=== PATIENT | male | born 1975 | race Caucasian/White ===

== ENCOUNTER → 2023-01-15 | Outpatient (CLI) | payer BC, SELFPAY ==
[2023-01-15 17:50] LABS: Absolute Lymphocyte Count 2.72 X10^3/uL (0.83-4.51); Absolute Neutrophil Count 5.7 X10^3/uL (2.0-7.7); Basophil# 0.07 X10^3/uL; Basophil% 0.7 % (0-1); Eosinophil# 0.32 X10^3/uL; Eosinophils% 3.4 % (0-5); Hematocrit 48.7 % (40-54); Lymphocyte # 2.72 X10^3/ul (0.83-4.51); Lymphocyte % 28.8 % (19-41); Mean Corp Hgb Conc 32.9 g/dL (32-36); Mean Corpuscular Hgb 27.7 pg (27.0-32.0); Mean Corpuscular Volume 84.4 fL (80-94); Monocyte# 0.68 X10^3/uL; Monocyte% 7.2 % (0-10); NRBC Flagged by Analyzer 0 % (0-5); Neutrophil # 5.65 X10^3/uL (2.7-7.7); Neutrophil % 59.7 % (47-70); Platelet Count 213 K/mm3 (150-450); RBC Distribution Width CV 12.5 % (11.6-14.6); Red Blood Count 5.77 M/mm3 (4.6-6.2); White Blood Count 9.5 K/mm3 (4.4-11.0)
[2023-01-15 18:22] LABS: AST(SGOT) 30 U/L (15-37); Alanine Aminotransfer ALT/SGPT 69 U/L (16-61); Albumin, Serum 4.2 g/dL (3.2-5.0); Alkaline Phosphatase 89 U/L (45-117); Anion Gap 7 (5-15); BUN 14 mg/dL (7-18); Calcium,Total 9.3 mg/dL (8.5-10.1); Chloride 108 mmol/L (98-107); Cholesterol 212 mg/dL (200); Creatinine, Serum 1.08 mg/dL (0.70-1.30); EST Glomerular Filtration Rate 77 mL/min (>60); Est Glom Filt Rate - Afr Amer 93 mL/min (>60); Glucose 78 mg/dL (74-106); High Density Lipoprotein 38 mg/dL; Potassium 3.9 mmol/L (3.5-5.1); Protein, Total 8.2 g/dL (6.4-8.2); Sodium Level 139 mmol/L (136-145); Thyroid Stim Hormone (TSH) 1.03 uIU/mL (0.358-3.74); Triglycerides 129 mg/dL; Very Low Density Lipoprotein 26 mg/dL (5-40)
== END | disposition home or self-care (01) ==
LOC: MFPLAB 14:37
PROVIDERS: PCP Family Medicine; Visit Provider Family Medicine
DX: I10 Essential (primary) hypertension (principal); Z13.220 Encounter for screening for lipoid disorders
CPT/HCPCS: 36415; 80053; 80061; 84443; 85025

== ENCOUNTER → 2023-08-06 | Outpatient (CLI) | payer BC, SELFPAY ==
[2023-08-06 18:10] LABS: PSA,Total - Annual Screen 0.42 ng/mL (0.00-4.00)
== END | disposition home or self-care (01) ==
LOC: MFPLAB 14:37
PROVIDERS: PCP Family Medicine; Visit Provider Family Medicine
DX: Z00.00 Encounter for general adult medical examination without abnormal findings (principal); Z80.42 Family history of malignant neoplasm of prostate
CPT/HCPCS: 36415; 84153; G0103

== ENCOUNTER → 2025-02-20 | Outpatient (CLI) | payer BC, SELFPAY ==
[2025-02-20 17:57] LABS: Hematocrit 46.4 % (40-54); Hemoglobin 16.0 g/dL (13.0-16.5); Mean Corp Hgb Conc 34.5 g/dL (32-36); Mean Corpuscular Volume 81.0 fL (80-94); Mean Platelet Vol. 9.6 fl (6.2-12.0); Platelet Count 227 K/mm3 (150-450); RBC Distribution Width CV 12.2 % (11.6-14.6); RBC Distribution Width SD 35.3 fl (35.1-43.9); Red Blood Count 5.73 M/mm3 (4.6-6.2); White Blood Count 9.7 K/mm3 (4.4-11.0)
[2025-02-20 18:29] LABS: AST(SGOT) 37 U/L (<=37); Alanine Aminotransfer ALT/SGPT 64 U/L (<=46); Albumin, Serum 4.7 g/dL (3.5-5.0); Alkaline Phosphatase 92 U/L (40-129); Anion Gap 13 (5-15); BUN 17 mg/dL (4-19); BUN/Creat Ratio 14.9 RATIO (10-20); Calcium,Total 10.3 mg/dL (7.6-11.0); Carbon Dioxide 24.7 mmol/L (21.0-32.0); Chloride 103 mmol/L (98-108); Cholesterol 234 mg/dL (<=200); Globulin 3.3 g/dL (2.2-4.2); Glucose 102 mg/dL (70-99); Low Density Lipoprotein Calc. 113 mg/dL; PSA,Total - Annual Screen 0.42 ng/mL (0.02-4.00); Potassium 3.7 mmol/L (3.3-5.1); Triglycerides 506 mg/dL; Very Low Density Lipoprotein 101 mg/dL (5-40); cholesterol:hdl ratio screen 7.29
== END | disposition home or self-care (01) ==
LOC: MFPLAB 15:24
PROVIDERS: PCP Family Medicine; Visit Provider Family Medicine
DX: I10 Essential (primary) hypertension (principal); Z13.220 Encounter for screening for lipoid disorders; Z12.5 Encounter for screening for malignant neoplasm of prostate
CPT/HCPCS: 36415; 80053; 80061; 84153; 85027; G0103

== ENCOUNTER 2025-04-03 07:04 | Day surgery (SDC) | payer BC, SELFPAY ==
[2025-04-03] VITALS (9 sets, daily range): BP systolic 114–132; BP diastolic 69–96; PULSE 69–78; RESP 16; TEMP 36.2–37.2; O2SAT 94–97; BMI 32.2
--- OUTSIDE RECORDS SUMMARY | 2025-04-03 07:09 | XMS RPT_ITS | CCD ---
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 Role Phone Nicolette Starks Primary Care Unavailable Nicolette Starks Attending Unavailable Nicolette Starks Primary Care Unavailable Brad Choudhary Attending Unavailable Problems Problem Classification Problem Date Documented Da te Episodic/Chronic Essential hypertension (1 source) Essential (primary) hypertension; Translations: [Essential (primary) hypertension] Onset: 03-03-2025 Chronic Results Test Name Value Interpretation Reference Range Facility CBC-Complete Blood Cnt No Di ffon 02-20-2025 Erythrocyte distribution width (RBC) [Ratio] 12.2 % Normal 11.6-14.6 [facility] Comment on above: Order Comment: Order Date: 02/20/25 Order Info: [id number] - CBC Performed By: #### L 100.0500, L500.4100, L500.4050, L501.9910 #### [facility] [address] [place], [address] Hematocrit (Bld) [Volume fraction] 46.4 % Normal 40-54 [facility] Comment on above: Order Comment: Order Date: 02/20/25 Order Info: [id number] - CBC Performed By: #### L 100.0500, L500.4100, L500.4050, L501.9910 #### [facility] [address] [place], [address] Hemoglobin (Bld) [Mass/Vol] 16.0 g/dL Normal 13.0-16.5 [facility] Comment on above: Order Comment: Order Date: 02/20/25 Order Info: [id number] - CBC Performed By: #### L 100.0500, L500.4100, L500.4050, L501.9910 #### [facility] [address] [place], [address] MCH (RBC) [Entitic mass] 27.9 pg Normal 27.0-32.0 [facility] Comment on above: Order Comment: Order Date: 02/20/25 Order Info: [id number] - CBC Performed By: #### L 100.0500, L500.4100, L500.4050, L501.9910 #### [facility] [address] [place], [address] MCHC (RBC) [Mass/Vol] 34.5 g/dL Normal 32-36 [facility] Comment on above: Order Comment: Order Date: 02/20/25 Order Info: [id number] - CBC Performed By: #### L 100.0500, L500.4100, L500.4050, L501.9910 #### [facility] [address] [place], [address] MCV (RBC) [Entitic vol] 81.0 fL Normal 80-94 [facility] Comment on above: Order Comment: Order Date: 02/20/25 Order Info: [id number] - CBC Performed By: #### L 100.0500, L500.4100, L500.4050, L501.9910 #### [facility] [address] [place], [address] Platelet mean volume (Bld) [Entitic vol] 9.6 fL Normal 6.2-12.0 [facility] Comment on above: Order Comment: Order Date: 02/20/25 Order Info: [id number] - CBC Performed By: #### L 100.0500, L500.4100, L500.4050, L501.9910 #### [facility] [address] [place], [address] Platelets (Bld) [#/Vol] 227 10*3/uL Normal 150-450 [facility] Comment on above: Order Comment: Order Date: 02/20/25 Order Info: [id number] - CBC Performed By: #### L 100.0500, L500.4100, L500.4050, L501.9910 #### [facility] [address] [place], [address] RBC (Bld) [#/Vol] 5.73 10*6/uL Normal 4.6-6.2 [facility] Comment on above: Order Comment: Order Date: 02/20/25 Order Info: [id number] - CBC Performed By: #### L 100.0500, L500.4100, L500.4050, L501.9910 #### [facility] [address] [place], [address] RDW SD 35.3 fl Normal 35.1-43.9 [facility] Comment on above: Order Comment: Order Date: 02/20/25 Order Info: [id number] - CBC Performed By: #### L 100.0500, L500.4100, L500.4050, L501.9910 #### [facility] [address] [place], [address] WBC (Bld) [#/Vol] 9.7 10*3/uL Normal 4.4-11.0 [facility] Comment on above: Order Comment: Order Date: 02/20/25 Order Info: [id number] - CBC Performed By: #### L 100.0500, L500.4100, L500.4050, L501.9910 #### [facility] [address] [place], [address] Comprehensive Metabolic Prof ilon 02-20-2025 Albumin [Mass/Vol] 4.7 g/dL Normal 3.5-5.0 [facility] Comment on above: Order Comment: Order Date: 02/20/25 Order Info: [id number] - CMP Order Info: [id number] - LIPID Order Info: [id number] - PSA Performed By: #### L 100.0500, L500.4100, L500.4050, L501.9910 #### [facility] [address] [place], [address] Albumin/Globulin [Mass ratio] 1.4 {ratio} Normal 0.9-2.4 [facility] Comment on above: Order Comment: Order Date: 02/20/25 Order Info: 785- - CMP Order Info: - LIPID Order Info: [id number] - PSA Performed By: #### L 100.0500, L500.4100, L500.4050, L501.9910 #### [facility] [address], [address] ALK PHOS 92 U/L Normal 40-129 [facility] Comment on above: Order Comment: Order Date: 02/20/25 Order Info: 07 - CMP Order Info: [id number] - LIPID Order Info: [id number] - PSA Performed By: #### L 100.0500, L500.4100, L500.4050, L501.9910 #### [facility] [address] [place], [address] ALT [Catalytic activity/Vol] 64 U/L High <=46 [facility] Comment on above: Order Comment: Order Date: 02/20/25 Order Info: [id number] - CMP Order Info: [id number] - LIPID Order Info: [id number] - PSA Performed By: #### L 100.0500, L500.4100, L500.4050, L501.9910 #### [facility] [address] [place], [address] AST [Catalytic activity/Vol] 37 U/L Normal <=37 [facility] Comment on above: Order Comment: Order Date: 02/20/25 Order Info: 0786 - CMP Order Info: [id number] - LIPID Order Info: [id number] - PSA Performed By: #### L 100.0500, L500.4100, L500.4050, L501.9910 #### [facility] [address] [place], [address] Bilirubin [Mass/Vol] 0.27 mg/dL Normal 0.00-1.30 [facility] Comment on above: Order Comment: Order Date: 02/20/25 Order Info: 785- - CMP Order Info: - LIPID Order Info: [id number] - PSA Performed By: #### L 100.0500, L500.4100, L500.4050, L501.9910 #### [facility] [address] [place], [address] BUN/CRE 14.9 RATIO Normal 10-20 [facility] Comment on above: Order Comment: Order Date: 02/20/25 Order Info: [id number] - CMP Order Info: - LIPID Order Info: [id number] - PSA Performed By: #### L 100.0500, L500.4100, L500.4050, L501.9910 #### [facility] [address] [place], [address] Calcium [Mass/Vol] 10.3 mg/dL Normal 7.6-11.0 [facility] Comment on above: Order Comment: Order Date: 02/20/25 Order Info: [id number] - CMP Order Info: - LIPID Order Info: [id number] - PSA Performed By: #### L 100.0500, L500.4100, L500.4050, L501.9910 #### [facility] [address] [place], [address] Chloride [Moles/Vol] 103 mmol/L Normal 98-108 [facility] Comment on above: Order Comment: Order Date: 02/20/25 Order Info: [id number] - CMP Order Info: - LIPID Order Info: [id number] - PSA Performed By: #### L 100.0500, L500.4100, L500.4050, L501.9910 #### [facility] [address] [place], [address] CO2 [Moles/Vol] 24.7 mmol/L Normal 21.0-32.0 [facility] Comment on above: Order Comment: Order Date: 02/20/25 Order Info: 07- - CMP Order Info: [id number] - LIPID Order Info: [id number] - PSA Performed By: #### L 100.0500, L500.4100, L500.4050, L501.9910 #### [facility] [address] [place], [address] Creatinine [Mass/Vol] 1.13 mg/dL Normal 0.70-1.20 [facility] Comment on above: Order Comment: Order Date: 02/20/25 Order Info: [id number] - CMP Order Info: [id number] - LIPID Order Info: [id number] - PSA Performed By: #### L 100.0500, L500.4100, L500.4050, L501.9910 #### [facility] [address] [place], [address] GAP 13 Normal 5-15 [facility] Comment on above: Order Comment: Order Date: 02/20/25 Order Info: 0786 - CMP Order Info: [id number] - LIPID Order Info: [id number] - PSA Performed By: #### L 100.0500, L500.4100, L500.4050, L501.9910 #### [facility] [address] [place], [address] GFR/1.73 sq M.predicted among non-blacks MDRD (S/P/Bld) [Vol rate/Area] 79 mL/min/{1.73_m2} Normal >60 [facility] Comment on above: Order Comment: Order Date: 02/20/25 Order Info: 07- - CMP Order Info: [id number] - LIPID Order Info: [id number] - PSA Result Comment: mL/m in/1.73m2 CKD-EPI Creatinine Equation (2020) Performed By: #### L 100.0500, L500.4100, L500.4050, L501.9910 #### [facility] [address] [place], [address] Globulin (S) [Mass/Vol] 3.3 g/dL Normal 2.2-4.2 [facility] Comment on above: Order Comment: Order Date: 02/20/25 Order Info: [id number] - CMP Order Info: [id number] - LIPID Order Info: [id number] - PSA Performed By: #### L 100.0500, L500.4100, L500.4050, L501.9910 #### [facility] [address] [place], [address] Glucose [Mass/Vol] 102 mg/dL High 70-99 [facility] Comment on above: Order Comment: Order Date: 02/20/25 Order Info: [id number] - CMP Order Info: [id number] - LIPID Order Info: [id number] - PSA Performed By: #### L 100.0500, L500.4100, L500.4050, L501.9910 #### [facility] [address] [place], [address] Potassium [Moles/Vol] 3.7 mmol/L Normal 3.3-5.1 [facility] Comment on above: Order Comment: Order Date: 02/20/25 Order Info: [id number] - CMP Order Info: [id number] - LIPID Order Info: 2857 - PSA Performed By: #### L 100.0500, L500.4100, L500.4050, L501.9910 #### [facility] [address] [place], [address] Sodium [Moles/Vol] 141 mmol/L Normal 133-145 [facility] Comment on above: Order Comment: Order Date: 02/20/25 Order Info: 07 - CMP Order Info: [id number] - LIPID Order Info: [id number] - PSA Performed By: #### L 100.0500, L500.4100, L500.4050, L501.9910 #### [facility] [address] [place], [address] T PROT 8.0 g/dL Normal 5.9-8.4 [facility] Comment on above: Order Comment: Order Date: 02/20/25 Order Info: 07 - CMP Order Info: - LIPID Order Info: [id number] - PSA Performed By: #### L 100.0500, L500.4100, L500.4050, L501.9910 #### [facility] [address] [place], [address] Urea nitrogen [Mass/Vol] 17 mg/dL Normal 4-19 [facility] Comment on above: Order Comment: Order Date: 02/20/25 Order Info: 07 - CMP Order Info: - LIPID Order Info: [id number] - PSA Performed By: #### L 100.0500, L500.4100, L500.4050, L501.9910 #### [facility] [address] [place], [address] Lipid Profileon 02-20-2025 CHOL:HDL 7.29 Normal [facility] Comment on above: Order Comment: Order Date: 02/20/25 Order Info: 0786 - CMP Order Info: [id number] - LIPID Order Info: [id number] - PSA Performed By: #### L 100.0500, L500.4100, L500.4050, L501.9910 #### [facility] [address] [place], [address] Cholesterol [Mass/Vol] 234 mg/dL High <=200 [facility] Comment on above: Order Comment: Order Date: 02/20/25 Order Info: 0786 - CMP Order Info: [id number] - LIPID Order Info: [id number] - PSA Result Comment: Chol esterol level, Desirable <200 mg/dL Borderline high cholesterol 200-239 mg/dL High cholesterol >=240 mg/dL Recommendations of the NCEP Adult Treatment Panel for the following risk-cutoff thresholds for the [place] population. Performed By: #### L 100.0500, L500.4100, L500.4050, L501.9910 #### [facility] [address] [place], [address] Cholesterol in HDL [Mass/Vol] 32 mg/dL Low [facility] Comment on above: Order Comment: Order Date: 02/20/25 Order Info: 0786- - CMP Order Info: [id number] - LIPID Order Info: [id number] - PSA Result Comment: Anastasiya onal Cholesterol Education Program (NCEP) guidelines: <40 mg/dL: Low HDL-cholesterol (major risk factor for CHD) >= 60 mg/dL: High HDL-cholesterol (negative risk factor for CHD) HDL-cholesterol is affected by a number of factors, e.g. smoking, exercise, hormones, sex and age. Performed By: #### L 100.0500, L500.4100, L500.4050, L501.9910 #### [facility] [address] [place], [address] Cholesterol in LDL [Mass/Vol] 113 mg/dL Normal [facility] Comment on above: Order Comment: Order Date: 02/20/25 Order Info: 0786-1 - CMP Order Info: [id number] - LIPID Order Info: [id number] - PSA Result Comment: Bord qqebbp=448-961 mg/dL Higher Ctas=476 mg/dL or greater Keller Equation 2020 for LDL-C Performed By: #### L 100.0500, L500.4100, L500.4050, L501.9910 #### [facility] [address] [place], [address] Cholesterol in VLDL [Mass/Vol] 101 mg/dL High 5-40 [facility] Comment on above: Order Comment: Order Date: 02/20/25 Order Info: [id number] - CMP Order Info: [id number] - LIPID Order Info: [id number] - PSA Performed By: #### L 100.0500, L500.4100, L500.4050, L501.9910 #### [facility] [address] [place], [address] Triglyceride [Mass/Vol] 506 mg/dL High [facility] Comment on above: Order Comment: Order Date: 02/20/25 Order Info: [id number] - CMP Order Info: [id number] - LIPID Order Info: [id number] - PSA Result Comment: The drugs N-Acetylcysteine and Metamizole may falsely depress this assay. Normal range: <150 mg/dL Borderline High: 150-199 mg/dL High: 200-499 mg/dL Very High: >500 mg/dL Performed By: #### L 100.0500, L500.4100, L500.4050, L501.9910 #### [facility] [address] [place], [address] PSA,Total - Annual Screenon 02-20-2025 PSA,TOT SCREEN 0.42 ng/mL Normal 0.02-4.00 [facility] Comment on above: Order Comment: Order Date: 02/20/25 Order Info: [id number] - CMP Order Info: [id number] - LIPID Order Info: [id number] - PSA Result Comment: This test was performed using the [employer] tPSA method. Measured values of a patient??sample can vary depending on the testing procedure used. PSA values determined on patient samples by different testing procedures cannot be used interchangeably. If there is a change in PSA assays while monitoring therapy, sequential testing should be performed to confirm baseline values. Performed By: #### L 100.0500, L500.4100, L500.4050, L501.9910 #### [facility] [address] [place], [address] No Panel InformationOrdered By: Nicolette Starks on 08-06-2023 Prostate Specific Antigen Screen 0.42 ng/mL 0.00-4.00 [facility] Comment on above: This test was perfor med using the TPSA assay method [facility]. Values obtained with differentassay methods cannot be used interchangably.When changing PSA assays in the course of monitoring apatient, additional sequential testing should be carriedout to confirm baseline values. Absolute lymphocyte countOrd ered By: Nicolette Starks on 01-15-2023 Lymphocytes Auto (Unsp spec) [#/Vol] 2.72 10*3/uL 0.83-4.51 [facility] Basophil percentageOrdered B y: Nicolette Starks on 01-15-2023 Basophils/100 WBC (Bld) 0.7 % 0-1 [facility] Bilirubin [Mass/Vol] 0.80 mg/dL 0.20-1.00 [facility] Comment on above: For patients on eltr ombopag therapy, use of Dimension [place] TBIL is not recommended. Chloride [Moles/Vol] 108 mmol/L 98-107 [facility] Cholesterol [Mass/Vol] 212 mg/dL <200 [facility] Comment on above: <200 mg/dL Desirable 200-240 mg/dL Borderline >240 mg/dL High Risk Eosinophils/100 WBC (Bld) 3.4 % 0-5 [facility] Glucose [Mass/Vol] 78 mg/dL 74-106 [facility] Neutrophils (Bld) [#/Vol] 5.7 10*3/uL 2.0-7.7 [facility] Neutrophils/100 WBC (Bld) 59.7 % 47-70 [facility] Potassium [Moles/Vol] 3.9 mmol/L 3.5-5.1 [facility] Protein [Mass/Vol] 8.2 g/dL 6.4-8.2 [facility] Sodium [Moles/Vol] 139 mmol/L 136-145 [facility] Triglyceride [Mass/Vol] 129 mg/dL <199 [facility] Comment on above: The drugs N-Acetylcy steine and Metamizole may falsely depress this assay.Serum Triglycerides Reference Interval Normal <150 mg/dL Borderline high 150 - 199 mg/dL High 200 - 499 mg/dL Very High > or = 500 mg/dL WBC (Bld) [#/Vol] 9.5 10*3/uL 4.4-11.0 [facility] Blood erythrocytes count (nu mber/volume)Ordered By: Nicolette Starks on 01-15-2023 RBC (Bld) [#/Vol] 5.77 10*6/uL 4.6-6.2 [facility] Blood hemoglobin measurement (mass/volume)Ordered By: Nicolette Starks on 01-15-2023 Hemoglobin (Bld) [Mass/Vol] 16.0 g/dL 13.0-16.5 [facility] Blood lymphocytes/100 leukoc ytesOrdered By: Nicolette Starks on 01-15-2023 Lymphocytes/100 WBC (Bld) 28.8 % 19-41 [facility] Blood monocytes/100 leukocyt esOrdered By: [facility] on 01-15-2023 Monocytes/100 WBC (Bld) 7.2 % 0-10 [facility] Blood platelet mean volumeOr dered By: Nicolette Starks on 01-15-2023 Platelet mean volume (Bld) [Entitic vol] 10.0 fL 6.2-12.0 [facility] Determination of erythrocyte mean corpuscular volume (MCV)Ordered By: Nicolette Starks on 01-15-2023 MCV (RBC) [Entitic vol] 84.4 fL 80-94 [facility] Hematocrit Auto (Bld) [Volum e fraction]Ordered By: Nicolette Starks on 01-15-2023 Hematocrit (Bld) [Volume fraction] 48.7 % 40-54 [facility] - Chemistry and C hemistry - challengeOrdered By: [facility] on 01-15-2023 ALP [Catalytic activity/Vol] 89 U/L 45-117 [facility] ALT [Catalytic activity/Vol] 69 U/L 16-61 [facility] CO2 [Moles/Vol] 24.0 mmol/L 21.0-32.0 [facility] Globulin (S) [Mass/Vol] 4.0 g/dL 2.2-4.2 [facility] Urea nitrogen/Creatinine [Mass ratio] 13.0 mg/mg 10-20 [facility] - Hematology and Cell countsOrdered By: Nicolette Starks on 01-15-2023 Erythrocyte distribution width (RBC) [Entitic vol] 38.0 fL 35.1-43.9 [facility] Erythrocyte distribution width (RBC) [Ratio] 12.5 % 11.6-14.6 [facility] Immature granulocytes/100 WBC (Bld) 0.200 % 0.0-0.9 [facility] Comment on above: IG% - Immature Granu locytes (promyelocytes, myelocytes and metamyelocytes) > 1% indicates that a LEFT SHIFT is Present. MCH (RBC) [Entitic mass] 27.7 pg 27.0-32.0 [facility] Nucleated RBC/100 WBC (Bld) [Ratio] 0 % 0-5 [facility] MCHC Auto (RBC) [Mass/Vol]Or dered By: Nicolette Starks on 01-15-2023 MCHC (RBC) [Mass/Vol] 32.9 g/dL 32-36 [facility] No Panel InformationOrdered By: Nicolette Starks on 01-15-2023 Estimated GFR (MDRD) Amer 93 mL/min >60 [facility] Comment on above: GFR Calc Estimated GFR (MDRD) Non-Af Amer 77 mL/min >60 [facility] Comment on above: Non- GFR Calc Thyroid Stimulating Hormone (TSH) 1.03 uIU/mL 0.358-3.74 [facility] Platelets bldOrdered By: Luann Starks on 01-15-2023 Platelets (Bld) [#/Vol] 213 10*3/uL 150-450 [facility] Serum or plasma albumin jian urement (mass/volume)Ordered By: Nicolette Starks on 01-15-2023 Albumin [Mass/Vol] 4.2 g/dL 3.2-5.0 [facility] Serum or plasma albumin/glob ulin mass ratioOrdered By: Nicolette Starks on 01-15-2023 Albumin/Globulin [Mass ratio] 1.0 {ratio} 0.9-2.4 [facility] Serum or plasma calcium jian urement (mass/volume)Ordered By: Nicolette Starks on 01-15-2023 Calcium [Mass/Vol] 9.3 mg/dL 8.5-10.1 [facility] Serum or plasma cholesterol in HDL measurement (mass/volume)Ordered By: Nicolette Starks on 01-15-2023 Cholesterol in HDL [Mass/Vol] 38 mg/dL >40 [facility] Comment on above: The drugs N-Acetylcy steine and Metamizole may falsely depress this assay. Reference Range HDL <40 mg/dL Low HDL Cholesterol HDL >or= 60 mg/dL High HDL Cholesterol Serum or plasma cholesterol in VLDL measurement (mass/volume)Ordered By: Nicolette Starks on 01-15-2023 Cholesterol in VLDL [Mass/Vol] 26 mg/dL 5-40 [facility] Serum or plasma creatinine m easurement (mass/volume)Ordered By: Nicolette Starks on 01-15-2023 Creatinine [Mass/Vol] 1.08 mg/dL 0.70-1.30 [facility] Comment on above: The validity of the calculated GFR & GFRAA in patients over 70 years has not been determined. Clinical correlation is essential. Serum or plasma low density lipoprotein (LDL) cholesterol measurement (mass/volume)Ordered By: Nicolette Starks on 01-15-2023 Cholesterol in LDL [Mass/Vol] 148 mg/dL 0-130 [facility] Serum or plasma urea nitroge n measurement (mass/volume)Ordered By: Nicolette Raudel on 01-15-2023 Urea nitrogen [Mass/Vol] 14 mg/dL 7-18 [facility] Thin prep Papanicolaou smear with manual screeningOrdered By: Nicolette Raudel on 01-15-2023 Thin prep Papanicolaou smear with manual screening 30 U/L 15-37 [facility] Thin prep Papanicolaou smear with manual screening 7 5-15 [facility] Encounters Encounter Date Encounter Type Care Provider Facility Start: 04-03-2025 ambulatory [facility] Facility:[facility] Start: 02-20-2025 End: 02-20-2025 ambulatory [facility] Facility:[facility] Start: 08-06-2023 End: 08-06-2023 ambulatory [facility] Work Phone: Start: 08-06-2023 End: 08-06-2023 Patient encounter procedure [facility], [facility] Start: 01-15-2023 End: 01-15-2023 ambulatory [facility] Work Phone: Start: 01-15-2023 End: 01-15-2023 Patient encounter procedure [facility], [facility] Payers Date Payer Category Payer Self-pay 2025 Unknown [id number] Unknown [facility] BLUE ACCESS PPO [id number] Unknown [id number] Unknown [id number] Social History Date [facility] Work Phone: Start: 1975 Sex Assigned At Male [facility] Evaluation note Note Date & Type Note Facility Evaluation note No assessment information availa ble [facility] Work Phone: Summary Purpose Family History No Family History Records Found Advance Directives No Advanced Directives Records Found Additional Source Comments Care Teams (unrecognized sec tion and content) Team Status: Active Member Role Status Dates Mariah Cardona Family Provider Active Nicolette Starks MD Primary Care Provider Active Team Status: Inactive Member Role Status Dates Nicolette Starks MD Primary Care Provider, Attending Prov ider Active Goals (unrecognized section and content) Goals may be documented in a n alternate section (unrecognized sect ion and content) No Status Records Found INFORMATION SOURCE (unrecogn ized section and content) DATE CREATED AUTHOR 03/08/2025 [facility] FOR RECORDS PERTAINING TO PATIENTS WHO ARE OR HAVE BEEN ENROLLED IN A CHEMICAL DEPENDENCY/SUBSTANCEABUSE PROGRAM, SOME INFORMATION MAY BE OMITTED. This clinical summary was aggregated from multiple sources. Caution should be exercised in using it in the provision of clinical care. This summary normalizes information from multiple sources, and as a consequence, information in this document may materially change the coding, format and clinical context of patient data. In addition, data may be omitted in some cases. CLINICAL DECISIONS SHOULD BE BASED ON THE PRIMARY CLINICAL RECORDS. [facility]. provides no warranty or guarantee of the accuracy or completeness of information in this document.
[2025-04-03] MEDS: Lactated Ringers 1,000 ML 15 ML IV (07:15)
--- NOTE | 2025-04-03 07:47 | PRE.ANES_ITS ---
ASA Classification* ASA Classification ASA Classification: 2 Assessment & Plan Anesthesia* Anesthesia Assessment Anesthesia Assessment: Discussed sedation and/or anesthesia options, risks, benefits, and alternatives with patient/parents/legal guardian/POA. Questions invited. The patient/parents/legal guardian/POA seems to understand and agrees to proceed with anesthesia plan. Reviewed the physical assessment, medical history, allergy history and patient home medications list prior to surgery/procedure/anesthetic and documented any changes. Performed airway and anesthesia risk assessments. Anesthesia Type Anesthesia Type: MAC History Source History Obtained from:: Patient and Chart Anesthesia Focused Assessment* Temperature: 99 F Pulse Rate: 76 Blood Pressure: 132/96 Respiratory Rate: 16 Pulse Ox: 97 Oxygen Delivery Method: Room Air Airway Assessment Mouth opens: >3 cm Mallampati Score: II Neck Range of motion (ROM): Full ROM Labs Anesthesia Preop lab: CBC WBC, (4.4-11.0) 9.7 K/mm3 02/20/25, 15:24 RBC, (4.6-6.2) 5.73 M/mm3 02/20/25, 15:24 Hgb, (13.0-16.5) 16.0 g/dL 02/20/25, 15:24 Hct, (40-54) 46.4 % 02/20/25, 15:24 Plt Count, (150-450) 227 K/mm3 02/20/25, 15:24 CHEMISTRY Potassium, (3.3-5.1) 3.7 mmol/L 02/20/25, 15:24 Sodium, (133-145) 141 mmol/L 02/20/25, 15:24 BUN, (4-19) 17 mg/dL 02/20/25, 15:24 Creatinine, (0.70-1.20) 1.13 mg/dL 02/20/25, 15:24 Glucose, (70-99) 102 mg/dL H 02/20/25, 15:24 TSH, (0.358-3.74) 1.03 uIU/mL 01/15/23, 14:43 COAG Pre-Assessment Diagnosis/Proposed Procedure Planned Operative Procedure(s): CSCOPE Anesthesia History Anesthesia History - siebel crm developer: Anesthesia History - siebel crm developer Hx Hospitalization No 04/02/25 09:09 Any Problems With Anesthesia No 04/02/25 09:09 Cholinesterase deficiency No 04/02/25 09:09 You/Your Family Experience No 04/02/25 09:09 fever (hyperthermia) with Relationship Recent Exposure to Contagious No 04/03/25 07:24 Disease Does patient have nerve No 04/02/25 09:09 stimulator Patient instructed to have device shut off --Does patient have Pacemaker No 04/03/25 07:24 or ICD? When Was Last Pacemaker Check QUESTION #4 FULL TEXT: You/Your Family Experience fever (hyperthermia) with Anesthesia Last Oral Intake Last Oral intake: Last Oral Intake NPO since 22:30 04/03/25 07:24 Meds taken in AM with sips of No 04/03/25 07:24 water? Meds patient instructed to take am of surgery PONV PONV - siebel crm developer: PONV - siebel crm developer Female No 04/02/25 09:09 HX of Motion Sickness No 04/02/25 09:09 HX of N/V After Surgery No 04/02/25 09:09 Non-Smoker Yes 04/02/25 09:09 Duration of Surgery greater No 04/02/25 09:09 than 60 minutes Number of Risk Factors 1 04/02/25 09:09 PONV Score Low Risk 04/02/25 09:09 Height & Weight Height & Weight: Anesthesia: Height & Weight Height 6 ft 04/03/25 07:24 Weight: 107.8 kg 04/03/25 07:24 Body Mass Index (BMI) 32.2 04/03/25 07:24 Respiratory Assessment Respiratory Assessment - siebel crm developer: Respiratory Tract Infection Hx - siebel crm developer Hx Respiratory Tract Infection No 04/02/25 09:09 STOP Sleep Apnea STOP Sleep Apnea - siebel crm developer: STOP Sleep Apnea - siebel crm developer Hx Hypertension Yes: CONTROLLED WITH MED 04/02/25 09:09 Hx Sleep Apnea No 04/02/25 09:09 CPAP BIPAP Do you snore loudly (louder No 04/02/25 09:09 than talking or can be heard Do you often feel tired/ No 04/02/25 09:09 fatigued/ sleepy during daytime? Has anyone observed you stop No 04/02/25 09:09 breathing during sleep? STOP Results Negative 04/02/25 09:09 QUESTION #5 FULL TEXT : Do you snore loudly (louder than talking or can be heard through closed doors)? 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 Specify any problems Hx of Preganancy in last 3 N/A 04/02/25 09:09 Months Nurse Filling Out Transfusion NBUCHER 04/02/25 09:09 & Questions: Date: 04/02/25 04/02/25 09:09 Time: 09:10 04/02/25 09:09 Patient unable to answer at this time (ie. confused, unrespo /Reproduction History /Reproductive History - siebel crm developer: /Reproductive Hx- siebel crm developer Hx Now No 04/02/25 09:09 Gestational Age (in weeks): EDC: Hx Hx Para Hx Section SAB No 04/02/25 09:09 Does the father of the baby or his family experience fever w Father of the baby Malignant Hypertension history comment Active Medications Active Medications: Current Medications Generic Name Dose Route Start Last Admin Trade Name Ling PRN Reason Stop Dose Admin Lactated Ringer's 1,000 mls @ 15 mls/hr 04/03/25 07:15 04/03/25 07:15 IV 15 mls/hr .Q48H WARREN Administration PFSH Medical History Wears glasses Non-smoker Home Medications ?Medication ?Instructions ?Recorded ?Last Taken ?Type amlodipine 10 mg-benazepril 40 mg 1 cap PO DAILY 04/02 Unknown History capsule hydrochlorothiazide 25 mg tablet 25 mg PO DAILY Unknown History multivit,calc,mins-folic 240 1 tab PO DAILY 04/02/25 U nknown History mcg-vit K1 30 mcg-lycopene 300 mcg tablet (One Daily [facility]) Allergy/AdvReac Type Severity Reaction Status Date / Time No Known Allergies Allergy Verified 04/03/25 07:23 Surgical History History of toe surgery Social History Smoking Status: Never smoker Review of Systems (Anesthesia) ROS Narrative System reviewed and no additional complaints, except as documented.
--- NOTE | 2025-04-03 08:15 | COLBX_PTH ---
PATIENT: TANA LOVE LOC: EN U#:[id number] AGE/SX: 49/M ROOM: RE04/03/[address]: Dr. Brad Choudhary MD : 1975 BED: DIS: 04/03/2025 SPEC #: [id number] RECD: 04/03/25 09:49 STATUS: JANICE [place] #: [id number] FELISA: 04/03/25 08:[address]: Brad Choudhary DEPT: SURGICAL PATHOLOGY RECD BY: Cammy Peterson ENTERED: 04/03/25 10:20 SP TYPE: COLON BX OTHR DR: Nicolette Starks MD Tissues: Rectum, NOS Procedures: Surgery Specimen Level IV HEADER OPERATION: Colonoscopy with biopsy PRE-OP DIAGNOSIS: Screening for colon cancer TISSUE SUBMITTED: A- Rectal biopsy MICROSCOPIC DIAGNOSIS A. Rectum, biopsy: - Hyperplastic polyp (deeper sections examined). MICROSCOPIC DESCRIPTION Slides are reviewed. GROSS DESCRIPTION A. Received in fixative is one container labeled with the patient's name and designated Rectal biopsy. The specimen consists of two irregular fragments of yates tissue that measure 0.3 and 0.5 cm. The specimen is totally submitted in one cassette. [place] 04/03/2025 CPT:50537
--- NOTE | 2025-04-03 08:38 | PCM.HP.STD ---
HPI - General General Date of Admission: 04/03/25 Date of Service: 04/03/25 Chief Complaint: Screening colonoscopy HPI Narrative TANA LOVE, is a 49 M who presents today for screening colonoscopy. He has had no previous colonoscopy. No family history of colon polyps or colon cancers. He denies any GI issues or complaints. He states that he does take fiber daily. PFS Medical History Screening for colon cancer Wears glasses Non-smoker Home Medications ?Medication ?Instructions ?Recorded ?Last Taken ?Type amlodipine 10 mg-benazepril 40 mg 1 cap PO DAILY 04/02/25 Unknown History capsule hydrochlorothiazide 25 mg tablet 25 mg PO DAILY 04/02/25 Unknown History multivit,calc,mins-folic 240 1 tab PO DAILY 04/02/25 Unknown History mcg-vit K1 30 mcg-lycopene 300 mcg tablet (One Daily [employer]) Allergy/AdvReac Type Severity Reaction Status Date / Time No Known Allergies Allergy Verified 04/03/25 07:23 Surgical History History of toe surgery Social History Smoking Status: Never smoker Vital Signs Vital Signs Vital Signs: 04/03/25 07:24 04/03/25 07:24 04/03/25 07:24 Temperature 99 F Temperature Source Temporal Pulse Rate 76 Respiratory Rate 16 Respiratory Pattern Normal Blood Pressure 132/96 H Blood Pressure Mean 108 Blood Pressure Source Monitor Blood Pressure Position Semi-Fowlers Blood Pressure Location Left Arm Baseline BP 132/96 Pulse Ox 97 Oxygen Delivery Method Room Air 04/03/25 07:48 Temperature 99 F Temperature Source Pulse Rate 76 Respiratory Rate 16 Respiratory Pattern Blood Pressure 132/96 H Blood Pressure Mean Blood Pressure Source Blood Pressure Position Blood Pressure Location Baseline BP Pulse Ox 97 Oxygen Delivery Method Room Air Weight Weight: 237 lb 10.533 oz Body Mass Index (BMI) 32.2 Physical Exam Const alert, oriented x3 and no apparent distress Assessment & Plan Assessment/Plan (1) Screening for colon cancer: PLAN: Plan The patient is a 49-year-old male in need of a screening colonoscopy. This will be his first colonoscopy. He denies any issues or problems. We discussed the details of the planned procedure including risk benefits and alternatives. He wishes to proceed. This procedure will begin momentarily Charges/Coding Visit Charges Inpatient E&M: 35754 Init Hosp L2
--- NOTE | 2025-04-03 09:23 | OP.COLON_ITS ---
Patient Name: Ralph Salas Procedure Date: 04/03/2025 8:31 AM Date of : 1975 Age: 49 Procedure: Colonoscopy Indications: Screening for colorectal malignant neoplasm Providers: Brad Choudhary MD Referring MD: Nicolette Starks Md Medicines: Monitored Anesthesia Care Patient Profile: Refer to note in patient chart for documentation of history and physical. Last Colonoscopy: none. The patient's first colonoscopy is today. Complications: No immediate complications. Estimated blood loss: Minimal. Procedure: Pre-Anesthesia Assessment: - Prior to the procedure, a History and Physical was performed, and patient medications and allergies were reviewed. The patient's tolerance of previous anesthesia was also reviewed. The risks and benefits of the procedure and the sedation options and risks were discussed with the patient. All questions were answered, and informed consent was obtained. Prior Anticoagulants: The patient has taken no anticoagulant or antiplatelet agents. ASA Grade Assessment: II - A patient with mild systemic disease. After reviewing the risks and benefits, the patient was deemed in satisfactory condition to undergo the procedure. After I obtained informed consent, the scope was passed under direct vision. Throughout the procedure, the patient's blood pressure, pulse, and oxygen saturations were monitored continuously. The colonoscope was introduced through the anus and advanced to the cecum, identified by appendiceal orifice and ileocecal valve. The ileocecal valve, appendiceal orifice, and rectum were photographed. The entire colon was well visualized. The colonoscopy was performed without difficulty. The patient tolerated the procedure well. The quality of the bowel preparation was adequate. Moderate Sedation: See the other procedure note for documentation of moderate sedation with intraservice time. Scope In: 8:51:05 AM Scope Withdrawal Time 0 hours 12 minutes 13 seconds Scope Out: 9:15:11 AM Total Procedure Duration Time 0 hours 24 minutes 6 seconds Findings: The perianal and digital rectal examinations were normal. A 2 mm polyp was found in the rectum. The polyp was hyperplastic. The polyp was removed with a cold biopsy forceps. Resection and retrieval were complete. Verification of patient identification for the specimen was done by the nurse using the patient's name, date and medical record number. Estimated blood loss was minimal. The exam was otherwise without abnormality. Impression: - One 2 mm polyp in the rectum, removed with a cold biopsy forceps. Resected and retrieved. - The examination was otherwise normal. Recommendation: - Discharge patient to home (ambulatory). - High fiber diet. - Await pathology results. - Repeat colonoscopy in 5-10 years for surveillance based on pathology results. - Return to my office PRN. - Continue present medications. Procedure Code(s): --- Professional --- 37648, Colonoscopy, flexible; with biopsy, single or multiple Diagnosis Code(s): --- Professional --- Z12.11, Encounter for screening for malignant neoplasm of colon D12.8, Benign neoplasm of rectum CPT copyright 2021 [employer]. All rights reserved. The codes documented in this report are preliminary and upon certified medical coder review may be revised to meet current compliance requirements. Brad Choudhary MD 04/03/2025 9:23:24 AM This report has been signed electronically. Number of Addenda: 0 Note Initiated On: 04/03/2025 8:31 AM
--- NOTE | 2025-04-03 09:24 | OP.PROVAT_ITS ---
04/03/2025 Nicolette Starks Md Re : Colonoscopy procedure for Ralph Salas Dear Raudel This procedure was performed on Thursday, April 03, 2025. My impressions and recommendations are as follows: Impressions : - One 2 mm polyp in the rectum, removed with a cold biopsy forceps. Resected and retrieved. - The examination was otherwise normal. Recommendations : - Discharge patient to home (ambulatory). - High fiber diet. - Await pathology results. - Repeat colonoscopy in 5-10 years for surveillance based on pathology results. - Return to my office PRN. - Continue present medications. My findings are described in the full procedure note, which is enclosed. If I can be of further assistance, please feel free to contact me at . Sincerely, Brad Choudhary MD 04/03/2025 9:23:24 AM This report has been signed electronically.
--- NOTE | 2025-04-03 09:30 | PCM.POST.ANE ---
Anesthesia: Postop Eval I Current Vital Signs Temperature: 97.5 F Pulse Rate: 76 Blood Pressure: 124/71 Respiratory Rate: 16 Pulse Ox: 96 Oxygen Delivery Method: Room Air Assessment Airway patent: Yes Spontaneous unlabored respirations: Yes Mental status: Asleep nausea: No Vomiting: No Anesthesia Complication: No Fluid Hydration Crystalloid volume administer (ml): 700 Total IV fluid infused: 700 Progress Note Anesthesia document: Postop Eval 1 completed: Yes
--- NOTE | 2025-04-03 15:22 | PCM.POSTANE2 ---
Anesthesia Postop Eval I Sum Postop Eval Completion status Anesthesia document: Postop Eval 1 completed: Yes Anesthesia Postop Eval I Summary Anesthesia Postop Eval I Summary: Anesthesia Postop Eval I: Assessment Summary Airway patent Yes 04/03/25 09:31 [email or web address] Spontaneous unlabored Yes 04/03/25 09:31 [email or web address] respirations Mental status Asleep 04/03/25 09:31 [email or web address] nausea No 04/03/25 09:31 [email or web address] Vomiting No 04/03/25 09:31 [email or web address] Anesthesia Postop Eval I: Fluid Summary Crystalloid volume administer 700 04/03/25 09:31 [email or web address] (ml) Colloids volume administered ( ml) Blood Product volume administered (ml) Total IV fluid infused 700 04/03/25 09:31 [email or web address] Anesthesia Postop Eval I: Summary Notes Anesthesia Complication No 04/03/25 09:31 [email or web address] Anesthesia Complication Comment: Post-operative progress note Anesthesia: Postop Eval II Evaluation Mental status: Awake and Calm Pain Level: 1 nausea: No Vomiting: No Complications Anesthesia Complication: No
== END 2025-04-03 10:16 | disposition home or self-care (01) ==
LOC: EN 07:06 → AC 07:09
PROVIDERS: PCP Family Medicine; Referring Provider Family Medicine; Visit Provider Surgery
PROC: 0DJD8ZZ Inspection of Lower Intestinal Tract, Via Natural or Artificial Opening Endoscopic (ICD-10-PCS; CPT 45378; principal; 2025-04-03 08:10)
DX: Z12.11 Encounter for screening for malignant neoplasm of colon (principal); Z79.899 Other long term (current) drug therapy; K62.1 Rectal polyp
CPT/HCPCS: 45380; 88305; J2405